=== PATIENT | male | born 1960 | race Caucasian/White ===

== ENCOUNTER 2018-06-29 10:14 | Emergency (ER) | payer SELFPAY ==
[~2018-06-29 10:14] MED LIST: ISOVUE-370 76%-LOCM 1 ML ONE
[2018-06-29 11:14] LABS: #Basophils 0.1 thou/uL (0.0-0.2); #Eosinphils 0.4 thou/uL (0.0-0.7); #Lymphocytes 1.5 thou/uL (1.20-3.40); #Monocytes 0.5 thou/uL (0.11-0.59); #Neutrophils 2.9 thou/uL (1.40-6.50); %Basophils 1.4 % (0.0-1.0); %Eosinophils 6.7 % (0.0-10.0); %Lymphocytes 28.9 % (21.0-51.0); %Monocytes 8.6 % (0.0-10.0); %Neutrophils 54.4 % (42.0-75.0); Hemoglobin 16.7 g/dL (14.0-18.0); Mean Corpuscular HGB CONC 33.4 g/dL (32.0-36.0); Mean Corpuscular Hemoglobin 32.7 pg (27.0-31.0); Mean Corpuscular Volume 97.7 fL (78.0-98.0); Mean Platelet Volume 7.6 fL (7.4-10.4); Platelet Count 269 thou/uL (130-400); RBC Distribution Width 12.2 % (11.5-14.5); White Blood Cell (WBC) Count 5.3 thou/uL (4.8-10.8)
--- NOTE | 2018-06-29 11:23 | CT ---
CT BRAIN WITHOUT CONTRAST: HISTORY: Dizziness COMPARISON: 03/06/2015 FINDINGS: No evidence of acute infarct, hemorrhage, midline shift or abnormal extra-axial fluid collections is seen. The ventricular size is appropriate and the basilar cisterns are patent. The bony calvarium is intact. The mastoid air cells are well aerated. There is mucosal disease in the left maxillary sin us which is completely opacified. IMPRESSION: No CT evidence of acute intracranial process.
--- NOTE | 2018-06-29 11:27 | RAD ---
XR Chest 1 View Portable History: [Lump.] Comparison: Chest radiograph February 2016 Findings: Lungs are clear. No pneumothorax or effusion. Cardiac silhouette and mediastinal contours a re within normal limits. Impression: No acute intrathoracic abnormality.
[2018-06-29 11:37] LABS: ALT (SGPT) 71 U/L (8-55); AST (SGOT) 38 U/L (5-34); Alkaline Phosphatase 82 U/L (40-150); Anion Gap 12 mmol/L (10-20); BUN (Urea Nitrogen) 11 mg/dL (8.4-25.7); Calc. Creatinine Clearance 0 mL/min (70-130); Calcium 10.2 mg/dL (7.8-10.44); Carbon Dioxide 26 mmol/L (22-29); Chloride 108 mmol/L (98-107); Estimated GFR-MDRD 88; Globulin 2.8 g/dL (2.4-3.5); Glucose 101 mg/dL (70-105); Potassium 4.7 mmol/L (3.5-5.1); Protein, Total 7.8 g/dL (6.0-8.3); Sodium 141 mmol/L (136-145)
--- NOTE | 2018-06-29 11:53 | CT ---
Exam: Postcontrast soft tissue neck CT HISTORY: Lump along the left side of the neck. Patient has been on antibiotics for 10 days. Symptoms worsening. Eval for soft tissue abscess. FINDINGS: Visualized brain parenchyma is unremarkable. There is extensive left maxillary sinus mucosal disease with complete opacification of the left maxillary sinus. There is osseous hypertrophy suggesting a chronic process. There appears to be periodontal disease involving the adjacent maxilla. The source o f the infection of the left maxillary sinus may actually be odontogenic in origin. Bilateral orbits are intact. Both globes are appreciated. Symmetric attenuation the optic nerves and ocular rectus muscles Symmetric attenuation of the parotid and submental glands Unremarkable thyroid gland Symmetric attenuation structure cleidomastoid muscles There are scattered nonspecific, nonenlarged bilateral soft tissue neck lymph nodes. At the level of palpable marker, there is no abnormality. No evidence of soft tissue abscess. No jose ration of the subcutaneous fat Visualized aerodigestive tract is patent. No mucosal abnormality. Limited evaluation the anterior ora l cavity due to dental amalgam artifact. Midline fatty raphae of the tongue is preserved. Epiglottis is normal caliber. Preepiglottic fat is preserved Upper mediastinum and lung apices are unremarkable No evidence of high-grade central canal stenosis. Varying foraminal narrowing due to degenerative evelyn nge. Cervical spine vertebral body height is maintained. There is no fracture. IMPRESSION: 1. No evidence of a abscess or enlarged lymph node in the region of concern. 2. Left maxillary sinus disease likely chronic. Etiology of the maxillary sinus disease is likely odo ntogenic given erosion and periapical abscess involving a left maxillary molar tooth.
[2018-06-29 12:08] LABS: Acetaminophen Less than 6.0 mcg/mL (10.0-30.0); Alcohol Less than 10 mg/dL (Less than 10); Salicylate Less than 8.0 mg/dL (15.0-30.0)
[2018-06-29] MEDS ORDERED: Ketorolac Tromethamine 30 MG/ML VIAL ONE (12:16)
[2018-06-29] MEDS ORDERED: Ondansetron PF 4 MG/2 ML Vial ONE (12:16)
[2018-06-29 12:24] LABS: Bilirubin Negative (Negative); Blood, Urine Negative (Negative); Clarity CLEAR (Clear); Glucose, Urine (Dipstick) Negative (Negative); Leukocyte Negative (Negative); Nitrite Negative (Negative); Protein, Urine (Dipstick) Negative (Neg-Trace); Urobilinogen 0.2 mg/dL (0.2-1.0)
[2018-06-29 12:34] LABS: Specific Gravity, Urine Greater than 1.060 (1.002-1.036)
[2018-06-29 12:43] LABS: Amphetamine Not Detected (NotDetected); Barbiturates Screen Not Detected (NotDetected); Benzodiazepine Screen Not Detected (NotDetected); Cocaine Metabolite Screen Not Detected (NotDetected); Medtox Control Line Valid? VALID (VALID); Medtox Reader # READER 4; Methadone Not Detected (NotDetected); Methamphetamine Not Detected (NotDetected); Opiate Screen Not Detected (NotDetected); Oxycodone Screen Not Detected (NotDetected); Phencyclidine (PCP) Not Detected (NotDetected); THC/Cannabinoid Screen Detected (NotDetected); Tricyclic Screen Not Detected (NotDetected)
== END 2018-06-29 13:22 | disposition home or self-care (01) ==
LOC: ERS 10:14
DX: R59.0 Localized enlarged lymph nodes (principal); M79.10 Myalgia, unspecified site; K02.9 Dental caries, unspecified; F41.9 Anxiety disorder, unspecified; F17.210 Nicotine dependence, cigarettes, uncomplicated; R11.0 Nausea; Z79.899 Other long term (current) drug therapy
CPT/HCPCS: 36415; 70450; 70491; 71045; 80053; 80185; 80306; 80307; 81003; 84484; 85025; 93005; 94760; 96361; 96374; 96375; J1885; J2405; Q9966

== ENCOUNTER 2022-02-25 06:50 | Outpatient (CLI) | payer OTHER ==
[2022-02-25] MEDS ORDERED: Iopamidol 370 76% 100 ML VIAL ONE (08:47)
== END 2022-02-25 06:51 | disposition home or self-care (01) ==
LOC: CT 06:50
PROVIDERS: ATTEND Internal Medicine Gastroenterology
DX: K92.1 Melena (principal); K52.9 Noninfective gastroenteritis and colitis, unspecified; R10.32 Left lower quadrant pain; F10.10 Alcohol abuse, uncomplicated; R11.0 Nausea; K76.0 Fatty (change of) liver, not elsewhere classified
CPT/HCPCS: 74177; Q9967

== ENCOUNTER 2022-04-10 14:31 | Emergency (ER) | payer SELFPAY ==
[~2022-04-10 14:31] MED LIST changes: -ISOVUE-370 76%-LOCM 1 ML ONE; +Iopamidol-370 76% 500 ML 1 ML ONE
[2022-04-10] MEDS ORDERED: Morphine 4 MG/ML VIAL ONE (15:16)
[2022-04-10] MEDS ORDERED: Ondansetron PF 4 MG/2 ML Vial ONE (15:16)
[2022-04-10] MEDS ORDERED: Dicyclomine 20 MG/2 ML VIAL ONE (15:16)
[2022-04-10 15:21] LABS: #Eosinphils 0.7 thou/uL (0.0-0.7); #Lymphocytes 1.4 thou/uL (1.20-3.40); #Monocytes 0.6 thou/uL (0.11-0.59); #Neutrophils 4.4 thou/uL (1.40-6.50); %Basophils 0.1 % (0.0-1.0); %Eosinophils 9.6 % (0.0-10.0); %Lymphocytes 19.3 % (21.0-51.0); %Monocytes 7.8 % (0.0-10.0); %Neutrophils 63.2 % (42.0-75.0); Hemoglobin 16.3 g/dL (14.0-18.0); Mean Corpuscular HGB CONC 33.6 g/dL (32.0-36.0); Mean Corpuscular Hemoglobin 33.9 pg (27.0-31.0); Mean Platelet Volume 7.6 fL (7.4-10.4); Platelet Count 257 10x3/uL (130-400); RBC Distribution Width 11.7 % (11.5-14.5)
[2022-04-10 15:42] LABS: ALT (SGPT) 103 U/L (8-55); AST (SGOT) 79 U/L (5-34); Albumin 4.5 g/dL (3.5-5.0); Alkaline Phosphatase 83 U/L (40-110); Anion Gap 17 mmol/L (10-20); BUN (Urea Nitrogen) 13 mg/dL (8.4-25.7); Bilirubin, Total 0.9 mg/dL (0.2-1.2); Calc. Creatinine Clearance 0 mL/min (70-130); Calcium 9.5 mg/dL (7.8-10.44); Carbon Dioxide 22 mmol/L (22-29); Chloride 101 mmol/L (98-107); Estimated GFR 96; Globulin 2.8 g/dL (2.4-3.5); Glucose 75 mg/dL (70-105); Lipase 58 U/L (8-78); Potassium 4.6 mmol/L (3.5-5.1); Protein, Total 7.3 g/dL (6.0-8.3); Sodium 135 mmol/L (136-145)
== END 2022-04-10 18:37 | disposition home or self-care (01) ==
LOC: ERS 14:31
DX: R10.819 Abdominal tenderness, unspecified site (principal); R79.89 Other specified abnormal findings of blood chemistry; F17.210 Nicotine dependence, cigarettes, uncomplicated
CPT/HCPCS: 36415; 74178; 80053; 83690; 85025; 93005; 96372; 96374; 96375; J2270; J2405; Q9967

== ENCOUNTER 2022-10-09 15:28 | Inpatient (IN) | payer SELFPAY ==
[2022-10-09 19:55] VITALS: BMI 27.1
[2022-10-09] MEDS ORDERED: Ondansetron ODT 4 MG TAB PO PRN (19:58)
[2022-10-09] MEDS ORDERED: Acetaminophen 325 MG TAB PO PRN (20:03)
[2022-10-09] MEDS: Morphine 4 MG/ML VIAL SLOW IVP PRN (20:37)
[2022-10-09] MEDS: Ondansetron PF 4 MG/2 ML Vial IVP PRN (20:37)
[2022-10-09] MEDS ORDERED: Lorazepam 2 MG/ML VIAL SLOW IVP PRN (21:00)
[2022-10-09] MEDS: Lisinopril 10 MG TAB PO SCH (21:28)
[2022-10-09] MEDS: Sodium Chloride 0.9% 1,000 ML IV SCH (21:28)
[2022-10-10] MEDS: Ondansetron PF 4 MG/2 ML Vial IVP PRN ×3 (02:46→14:20)
[2022-10-10] MEDS: Morphine 4 MG/ML VIAL SLOW IVP PRN ×5 (02:47→23:06)
[2022-10-10 05:49] LABS: #Eosinphils 0.3 thou/uL (0.0-0.7); #Monocytes 0.6 thou/uL (0.11-0.59); #Neutrophils 2.2 thou/uL (1.40-6.50); %Basophils 0.9 % (0.0-1.0); %Eosinophils 6.6 % (0.0-10.0); %Lymphocytes 28.9 % (21.0-51.0); %Monocytes 12.7 % (0.0-10.0); %Neutrophils 50.7 % (42.0-75.0); Hematocrit 36.7 % (42.0-52.0); Hemoglobin 12.5 g/dL (14.0-18.0); Mean Corpuscular HGB CONC 34.1 g/dL (32.0-36.0); Mean Corpuscular Hemoglobin 32.6 pg (27.0-31.0); Mean Corpuscular Volume 95.6 fl (78.0-98.0); Mean Platelet Volume 9.9 fL (7.4-10.4); Platelet Count 235 10x3/uL (130-400); RBC Distribution Width 12.1 % (11.5-14.5); Red Blood Cell (RBC) Count 3.84 mill/uL (4.70-6.10); White Blood Cell (WBC) Count 4.4 10x3/uL (4.8-10.8)
[2022-10-10 06:15] LABS: ALT (SGPT) 77 U/L (8-55); AST (SGOT) 43 U/L (5-34); Albumin 3.7 g/dL (3.5-5.0); Alkaline Phosphatase 66 U/L (40-110); Anion Gap 12 mmol/L (10-20); BUN (Urea Nitrogen) 17 mg/dL (8.4-25.7); Bilirubin, Total 0.6 mg/dL (0.2-1.2); Calc. Creatinine Clearance 109 mL/min (70-130); Calcium 8.8 mg/dL (7.8-10.44); Carbon Dioxide 22 mmol/L (22-29); Chloride 104 mmol/L (98-107); Estimated GFR 93; Globulin 2.6 g/dL (2.4-3.5); Glucose 100 mg/dL (70-105); Potassium 4.3 mmol/L (3.5-5.1); Protein, Total 6.3 g/dL (6.0-8.3); Sodium 134 mmol/L (136-145)
[2022-10-10] MEDS: Phenytoin Extended Release 100 MG CAP PO SCH (08:29)
[2022-10-10] MEDS: Lisinopril 10 MG TAB PO SCH ×2 (08:30→20:43)
[2022-10-10] MEDS: Loratadine 10 MG TAB PO SCH (08:30)
[2022-10-10] MEDS: Pantoprazole 40 MG VIAL IVP SCH ×2 (08:31→20:44)
[2022-10-10] MEDS: Sodium Chloride 0.9% 1,000 ML IV SCH (08:37)
[2022-10-10] MEDS: Dicyclomine 20 MG TAB PO SCH ×3 (11:42→20:43)
[2022-10-10] MEDS ORDERED: metroNIDAZOLE 500 MG in Premix Bag 1 BAG IVPB SCH (15:00)
[2022-10-10] MEDS: metroNIDAZOLE 500 MG in Premix Bag 1 BAG IVPB SCH (20:44)
[2022-10-11] MEDS: metroNIDAZOLE 500 MG in Premix Bag 1 BAG IVPB SCH ×3 (05:12→20:40)
[2022-10-11] MEDS: Morphine 4 MG/ML VIAL SLOW IVP PRN ×3 (05:19→20:42)
[2022-10-11 07:55] LABS: #Eosinphils 0.4 thou/uL (0.0-0.7); #Monocytes 0.5 thou/uL (0.11-0.59); #Neutrophils 2.7 thou/uL (1.40-6.50); %Basophils 0.6 % (0.0-1.0); %Eosinophils 8.2 % (0.0-10.0); %Lymphocytes 21.3 % (21.0-51.0); %Monocytes 11.2 % (0.0-10.0); %Neutrophils 58.5 % (42.0-75.0); Hematocrit 36.9 % (42.0-52.0); Hemoglobin 12.6 g/dL (14.0-18.0); Mean Corpuscular HGB CONC 34.1 g/dL (32.0-36.0); Mean Corpuscular Hemoglobin 32.9 pg (27.0-31.0); Mean Corpuscular Volume 96.3 fl (78.0-98.0); Mean Platelet Volume 9.6 fL (7.4-10.4); Platelet Count 237 10x3/uL (130-400); RBC Distribution Width 12.1 % (11.5-14.5); Red Blood Cell (RBC) Count 3.83 mill/uL (4.70-6.10); White Blood Cell (WBC) Count 4.6 10x3/uL (4.8-10.8)
[2022-10-11 08:08] LABS: Anion Gap 11 mmol/L (10-20); BUN (Urea Nitrogen) 9 mg/dL (8.4-25.7); Calc. Creatinine Clearance 111 mL/min (70-130); Calcium 9.2 mg/dL (7.8-10.44); Carbon Dioxide 27 mmol/L (22-29); Chloride 102 mmol/L (98-107); Estimated GFR 96; Glucose 105 mg/dL (70-105); Iron 133 ug/dL (65-175); Iron Binding Capacity, Total 329 mcg/dL (261-462); Potassium 4.1 mmol/L (3.5-5.1); Sodium 136 mmol/L (136-145)
[2022-10-11 08:25] LABS: Ferritin 381.19 ng/mL (22-322)
[2022-10-11 08:44] LABS: HBCM Index 0.05 S/CO (0-0.79); HBSAg Index 0.27 S/CO (0-0.99); Hep A IgM AB Non-Reactive S/CO (NonReactive); Hep A IgM S/CO 0.18 S/CO (0-0.79); Hep B Surf Ag Non-Reactive S/CO (NonReactive); Hep C IgG Ab Non-Reactive S/CO (NonReactive); Hepatitis B Core IgM Abs Non-Reactive S/CO (NonReactive)
[2022-10-11] MEDS: Loratadine 10 MG TAB PO SCH (09:07)
[2022-10-11] MEDS: Lisinopril 10 MG TAB PO SCH ×2 (09:07→20:43)
[2022-10-11] MEDS: Pantoprazole 40 MG VIAL IVP SCH ×2 (09:07→20:41)
[2022-10-11] MEDS: Phenytoin Extended Release 100 MG CAP PO SCH (09:08)
[2022-10-11] MEDS: Dicyclomine 20 MG TAB PO SCH ×4 (09:08→20:43)
[2022-10-11] MEDS: Sodium Chloride 0.9% 1,000 ML IV SCH (13:30)
[2022-10-12] MEDS: Morphine 4 MG/ML VIAL SLOW IVP PRN ×2 (01:39→06:07)
[2022-10-12] MEDS: Sodium Chloride 0.9% 1,000 ML IV SCH ×2 (01:40→14:26)
[2022-10-12] MEDS: metroNIDAZOLE 500 MG in Premix Bag 1 BAG IVPB SCH (05:09)
[2022-10-12 08:35] LABS: #Eosinphils 0.4 thou/uL (0.0-0.7); #Monocytes 0.5 thou/uL (0.11-0.59); #Neutrophils 2.2 thou/uL (1.40-6.50); %Basophils 0.7 % (0.0-1.0); %Eosinophils 8.2 % (0.0-10.0); %Lymphocytes 29.9 % (21.0-51.0); %Monocytes 11.4 % (0.0-10.0); %Neutrophils 49.6 % (42.0-75.0); Hematocrit 38.8 % (42.0-52.0); Hemoglobin 12.9 g/dL (14.0-18.0); Mean Corpuscular HGB CONC 33.2 g/dL (32.0-36.0); Mean Corpuscular Hemoglobin 32.9 pg (27.0-31.0); Mean Platelet Volume 9.7 fL (7.4-10.4); Platelet Count 259 10x3/uL (130-400); Red Blood Cell (RBC) Count 3.92 mill/uL (4.70-6.10); White Blood Cell (WBC) Count 4.4 10x3/uL (4.8-10.8)
[2022-10-12 09:04] LABS: Anion Gap 12 mmol/L (10-20); BUN (Urea Nitrogen) 8 mg/dL (8.4-25.7); Calc. Creatinine Clearance 111 mL/min (70-130); Calcium 9.7 mg/dL (7.8-10.44); Carbon Dioxide 30 mmol/L (22-29); Chloride 100 mmol/L (98-107); Estimated GFR 96; Glucose 93 mg/dL (70-105); Potassium 3.9 mmol/L (3.5-5.1); Sodium 138 mmol/L (136-145)
[2022-10-12] MEDS: Pantoprazole 40 MG VIAL IVP SCH ×2 (09:31→21:44)
[2022-10-12] MEDS: Dicyclomine 20 MG TAB PO SCH ×4 (09:32→20:53)
[2022-10-12] MEDS: Loratadine 10 MG TAB PO SCH (09:32)
[2022-10-12] MEDS: Phenytoin Extended Release 100 MG CAP PO SCH (09:32)
[2022-10-12] MEDS: Lisinopril 10 MG TAB PO SCH ×2 (09:35→20:55)
[2022-10-12] MEDS: metroNIDAZOLE 500 MG TAB PO SCH ×2 (14:02→20:53)
[2022-10-12 17:03] LABS: ANA Symphony (Qualitative) Negative (Negative); ANA Symphony (Quantitative) 0.4 Ratio (< 0.7 Negative); EliA Vaculitis New Method **** NEW METHOD ****; Mitochondrial Ab 0.8 U/mL (<4 Negative); dsDNA IgG Antibody 2.2 IU/mL (<10 Negative)
[2022-10-12] MEDS ORDERED: HYDROcodone/Acetaminophen 5/325 mg Tablet PO PRN (17:44)
[2022-10-12] MEDS: Ciprofloxacin 500 MG TAB PO SCH (20:53)
[2022-10-12] MEDS ORDERED: Thiamine 100 MG TAB PO SCH (21:00)
[2022-10-13] MEDS: Sodium Chloride 0.9% 1,000 ML IV SCH (00:35)
[2022-10-13] MEDS: Ciprofloxacin 500 MG TAB PO SCH (04:58)
[2022-10-13 05:49] VITALS: TEMP 98.3
[2022-10-13 07:04] LABS: Anion Gap 13 mmol/L (10-20); BUN (Urea Nitrogen) 13 mg/dL (8.4-25.7); Calc. Creatinine Clearance 109 mL/min (70-130); Calcium 9.5 mg/dL (7.8-10.44); Carbon Dioxide 25 mmol/L (22-29); Chloride 102 mmol/L (98-107); Estimated GFR 93; Glucose 104 mg/dL (70-105); Potassium 4.2 mmol/L (3.5-5.1); Sodium 136 mmol/L (136-145)
[2022-10-13 07:21] LABS: #Eosinphils 0.4 thou/uL (0.0-0.7); #Monocytes 0.6 thou/uL (0.11-0.59); #Neutrophils 1.4 thou/uL (1.40-6.50); %Basophils 1.1 % (0.0-1.0); %Eosinophils 11.9 % (0.0-10.0); %Lymphocytes 32.4 % (21.0-51.0); %Monocytes 15.8 % (0.0-10.0); %Neutrophils 38.5 % (42.0-75.0); Hematocrit 36.6 % (42.0-52.0); Hemoglobin 12.8 g/dL (14.0-18.0); Mean Corpuscular Hemoglobin 33.6 pg (27.0-31.0); Mean Corpuscular Volume 96.1 fl (78.0-98.0); Mean Platelet Volume 9.9 fL (7.4-10.4); Platelet Count 245 10x3/uL (130-400); RBC Distribution Width 11.9 % (11.5-14.5); Red Blood Cell (RBC) Count 3.81 mill/uL (4.70-6.10); White Blood Cell (WBC) Count 3.6 10x3/uL (4.8-10.8)
[2022-10-13] MEDS: metroNIDAZOLE 500 MG TAB PO SCH (08:49)
[2022-10-13] MEDS: Loratadine 10 MG TAB PO SCH (08:49)
[2022-10-13] MEDS: Dicyclomine 20 MG TAB PO SCH (08:49)
[2022-10-13] MEDS: Lisinopril 10 MG TAB PO SCH (08:51)
[2022-10-13] MEDS: Phenytoin Extended Release 100 MG CAP PO SCH (08:51)
[2022-10-13 08:55] VITALS: BP 132/73
== END 2022-10-13 09:59 | disposition home or self-care (01) | DRG 392 ==
LOC: T4-B 15:28 → OBSVTOIN 10-10 11:21
PROVIDERS: ADMIT Internal Medicine; ATTEND Internal Medicine
DX: K57.92 Diverticulitis of intestine, part unspecified, without perforation or abscess without bleeding (principal); E87.1 Hypo-osmolality and hyponatremia; G89.29 Other chronic pain; F17.210 Nicotine dependence, cigarettes, uncomplicated; F10.10 Alcohol abuse, uncomplicated; F19.10 Other psychoactive substance abuse, uncomplicated; G40.909 Epilepsy, unspecified, not intractable, without status epilepticus; Z79.899 Other long term (current) drug therapy; Z86.73 Personal history of transient ischemic attack (TIA), and cerebral infarction without residual deficits; Z98.890 Other specified postprocedural states; Z90.49 Acquired absence of other specified parts of digestive tract
CPT/HCPCS: 36415; 80048; 80053; 80074; 82390; 82728; 83516; 83540; 83550; 85025; 86015; 86038; 86225; 96374; 96375; 96376; C9113; G0378; J0744; J2270; J2405; J7050; Q0162

== ENCOUNTER 2022-12-25 11:04 | Emergency (ER) | payer SELFPAY ==
[2022-12-25 11:50] LABS: #Eosinphils 0.4 thou/uL (0.0-0.7); #Monocytes 0.6 thou/uL (0.11-0.59); #Neutrophils 2.4 thou/uL (1.40-6.50); %Basophils 0.8 % (0.0-1.0); %Eosinophils 7.7 % (0.0-10.0); %Lymphocytes 30.6 % (21.0-51.0); %Monocytes 11.4 % (0.0-10.0); %Neutrophils 49.3 % (42.0-75.0); Hematocrit 42.7 % (42.0-52.0); Hemoglobin 14.7 g/dL (14.0-18.0); Mean Corpuscular HGB CONC 34.4 g/dL (32.0-36.0); Mean Corpuscular Hemoglobin 33.6 pg (27.0-31.0); Mean Corpuscular Volume 97.7 fl (78.0-98.0); Platelet Count 234 10x3/uL (130-400); Red Blood Cell (RBC) Count 4.37 mill/uL (4.70-6.10); White Blood Cell (WBC) Count 4.9 10x3/uL (4.8-10.8)
[2022-12-25 12:18] LABS: Troponin I Less than 0.010 ng/mL (< 0.028)
[2022-12-25 12:24] LABS: ALT (SGPT) 76 U/L (8-55); AST (SGOT) 50 U/L (5-34); Albumin 4.5 g/dL (3.5-5.0); Alkaline Phosphatase 85 U/L (40-110); Anion Gap 15 mmol/L (10-20); BUN (Urea Nitrogen) 14 mg/dL (8.4-25.7); Bilirubin, Total 0.5 mg/dL (0.2-1.2); Calc. Creatinine Clearance 0 mL/min (70-130); Calcium 9.7 mg/dL (7.8-10.44); Carbon Dioxide 24 mmol/L (22-29); Chloride 105 mmol/L (98-107); Estimated GFR 99; Glucose 97 mg/dL (70-105); Potassium 4.4 mmol/L (3.5-5.1); Protein, Total 7.5 g/dL (6.0-8.3); Sodium 140 mmol/L (136-145)
[2022-12-25] MEDS ORDERED: hydrALAZINE 10 MG TAB ONE (14:11)
== END 2022-12-25 15:35 | disposition home or self-care (01) ==
LOC: ERS 11:04
DX: I10 Essential (primary) hypertension (principal); F17.210 Nicotine dependence, cigarettes, uncomplicated; Z79.899 Other long term (current) drug therapy
CPT/HCPCS: 36415; 71045; 80053; 84484; 85025; 93005

== ENCOUNTER 2023-12-22 12:01 | Outpatient (CLI) | payer OTHER | END 2023-12-22 12:02 | disposition home or self-care (01) | LOC: RAD 12:01 | PROVIDERS: ATTEND Internal Medicine | DX: R06.00 Dyspnea, unspecified (principal) | CPT/HCPCS: 71046 ==

== ENCOUNTER 2024-11-09 10:34 | Outpatient (CLI) | payer OTHER | END 2024-11-09 10:35 | disposition home or self-care (01) | LOC: RAD 10:34 | PROVIDERS: ATTEND Internal Medicine | DX: R06.00 Dyspnea, unspecified (principal) | CPT/HCPCS: 71046 ==